=== PATIENT | female | born 1995 | race Caucasian/White ===

== ENCOUNTER 2018-04-09 16:14 | Emergency (ER) | payer OTHER ==
[~2018-04-09] VITALS: Ht 152.4 cm; Wt 44.0 kg
[~2018-04-09 16:14] MED LIST: AMOXICILLIN500 MG ORAL; ZITHROMAX250 MG ORAL
[2018-04-09 16:24] VITALS: BP 118/64
[2018-04-09 17:37] LABS: APPEARANCE,URINE CLEAR; BILIRUBIN, URINE NEGATIVE (NEGATIVE); COLOR,URINE PALE YELLOW; GLUCOSE, URINE (UA) NEGATIVE (NEGATIVE); KETONES,URINE NEGATIVE (NEGATIVE); LEUKOCYTE ESTERASE ,URINE NEGATIVE (NEGATIVE); NITRITE,URINE NEGATIVE (NEGATIVE); PH,URINE 7 (4.5-8.0); PROTEIN,URINE NEGATIVE (NEGATIVE); UROBILINOGEN,URINE NORMAL MG/DL (0.0-1.0)
--- NOTE | 2018-04-09 17:54 | Emergency Room Report ---
History of Present Illness General Chief Complaint: Female Urogenital Problems Source: Patient Present Illness HPI 23-year-old female presents to the emergency department complaining of having GI reaction to 2 antibiotics that she has been given for UTI. Patient states that she initially was taking Macrobid and began to have moderate diarrhea and nausea with vomiting. Her room air care provider then placed her onto Bactrim instead and patient states that she continues to have the same symptoms. Patient denies blood in the vomit or stool. She denies fevers, chills, low back pain, frequency she does report urgency last week. Patient states she has a history of frequent UTIs. Patient denies . She denies abdominal pain or tenderness.Denies CP, Palpitations, LOC, AMS, dizziness, Changes in Vision, Sensation, paresthesias, or a sudden severe headache. Allergies: Coded Allergies: No Known Allergies (Unverified , 04/17/16) Patient History Past Medical History: see triage record Past Surgical History: none Pertinent Family History: none Last Menstrual Period: 03/08/18 Now: No Reviewed Nursing Documentation: PMH: Agreed; PSxH: Agreed Nursing Documentation-PMH Past Medical History: No Stated History Review of Systems All Other Systems: negative except mentioned in HPI Physical Exam Vital Signs Date Time Temp Pulse Resp B/P (MAP) Pulse Ox O2 Delivery O2 Flow Rate FiO2 04/09/18 16:19 98.7 90 20 115/64 100 Room Air 98.8 Sp02 EP Interpretation: reviewed, normal General Appearance: no apparent distress, alert, GCS 15, non-toxic Head: normocephalic, atraumatic ENT: hearing grossly normal, normal voice Neck: full range of motion Respiratory: chest non-tender, lungs clear, normal breath sounds, speaking full sentences Cardiovascular #1: regular rate, rhythm Gastrointestinal: normal bowel sounds, non tender, soft Rectal: deferred Genitourinary: normal inspection, no CVA tenderness Musculoskeletal: back normal, gait/station normal, normal range of motion, non- tender Neurologic: alert, oriented x3, responsive, motor strength/tone normal, sensory intact, speech normal, grossly normal Psychiatric: judgement/insight normal Skin: normal color, no rash, warm/dry, well hydrated Lymphatic: no adenopathy Medical Decision Making PA Attestation Dr. Milner is my supervising Physician whom patient management has been discussed with. Diagnostic Impression: Primary Impression: Adverse drug reaction Qualified Codes: T88.7XXA - Unspecified adverse effect of drug or medicament, initial encounter Additional Impression: Nausea, vomiting, and diarrhea ER Course 23-year-old female presents to the emergency department complaining of having GI reaction to 2 antibiotics that she has been given for UTI. Patient states that she initially was taking Macrobid and began to have moderate diarrhea and nausea with vomiting. Her room air care provider then placed her onto Bactrim instead and patient states that she continues to have the same symptoms. Patient denies blood in the vomit or stool. She denies fevers, chills, low back pain, frequency she does report urgency last week. Patient states she has a history of frequent UTIs. Patient denies . She denies abdominal pain or tenderness.Denies CP, Palpitations, LOC, AMS, dizziness, Changes in Vision, Sensation, paresthesias, or a sudden severe headache. Ddx considered but are not limited to UTi , Pyelo, STI, Stone, Cystitis Review of this patient's culture and sensitivity report was faxed over from doctor's office shows more than 100,000 colony forming units of Escherichia coli Escherichia coli. Sensitive to all antibiotics except for ampicillin, cefazolin and Cipro. Vital signs: are WNL, pt. is afebrile H&PE are most consistent with resolved UTI ORDERS: - UA labs are attached ----No evidence of infection, urine is clear no elevation of inflammatory markers. ED INTERVENTIONS: None required at this time. D/w pt. the results of her urinalysis. d/w pt. that she may d/c previously rx'd abx. I encouraged her to follow up with urology. DISCHARGE: At this time pt. is stable for d/c to home. Will provide printed patient care instructions, and any necessary prescriptions. Care plan and follow up instructions have been discussed with the patient prior to discharge. Labs Test 04/09/18 16:25 Urine Color Pale yellow Urine Appearance Clear Urine pH 7 (4.5-8.0) Urine Specific [employer] [place] 1.005 (1.005-1.035) Urine Protein Negative (NEGATIVE) Urine Glucose (UA) Negative (NEGATIVE) Urine Ketones Negative (NEGATIVE) Urine Occult Blood Negative (NEGATIVE) Urine Nitrite Negative (NEGATIVE) Urine Bilirubin Negative (NEGATIVE) Urine Urobilinogen Normal MG/DL (0.0-1.0) Urine Leukocyte Esterase Negative (NEGATIVE) Urine HCG, Qualitative Negative (NEGATIVE) Last Vital Signs Date Time Temp Pulse Resp B/P (MAP) Pulse Ox O2 Delivery O2 Flow Rate FiO2 04/09/18 16:24 98.8 71 18 118/64 100 Room Air 98.8 Disposition: HOME, SELF-CARE Condition: Stable Referrals: Zackary Maddox M.D. Patient Instructions: Medical Screening Exam Additional Instructions: D/C antibiotics rx'd for UTI, Urine is Normal. Follow up with a Primary Care Provider in 3-5 days, even if your symptoms have resolved. --Please review list of primary care clinics, if you do not already have a primary care provider Return sooner to ED if new symptoms occur, or current symptoms become worse. - Please note that this Emergency Department Report was dictated using [employer] System[employer] farmworker technology software, occasionally this can lead to erroneous entry secondary to interpretation by the dictation equipment. Kerri Prabhakar April 09, 2018 17:54
[2018-04-09 17:56] VITALS: BP 125/69
== END 2018-04-09 18:30 | disposition home or self-care (01) ==
LOC: EMR 16:55
DX: R11.2 Nausea with vomiting, unspecified (principal); T37.0X5A Adverse effect of sulfonamides, initial encounter; Y92.9 Unspecified place or not applicable
CPT/HCPCS: 81003; 81025; 99283

== ENCOUNTER 2018-06-17 14:08 | Emergency (ER) | payer OTHER ==
[~2018-06-17] VITALS: Ht 152.4 cm; Wt 43.1 kg
[2018-06-17 14:28] VITALS: BP 112/78
[2018-06-17 15:08] VITALS: BP 115/82
--- NOTE | 2018-06-17 16:49 | Emergency Room Report ---
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 Patient has been dealing with problems for several years Reports essentially since childhood Reports that initially she had an area on her scalp that was thought to be something else however ended up being radha Denies any vaginal discharge and eyes any abdominal pain or cramping She vomited one time Denies any fevers or chills She reports that she has been taking a cleansing pill for the past several weeks she also started a new diet on Monday Which includes no sugar or starch And soon after she began having the increased stool Denies any recent travel Allergies: Coded Allergies: NITROFURANTOIN (Verified Allergy, Unknown, 06/17/18) n/v/d PHENAZOPYRIDINE (Verified Allergy, Unknown, 06/17/18) n/v/d Patient History Past Medical History: see triage record Pertinent Family History: none Last Menstrual Period: 2 weeks Now: No Reviewed Nursing Documentation: PMH: Agreed; PSxH: Agreed Nursing Documentation-PMH Past Medical History: No Stated History Review of Systems All Other Systems: negative except mentioned in HPI Physical Exam Vital Signs Date Time Temp Pulse Resp B/P (MAP) Pulse Ox O2 Delivery O2 Flow Rate FiO2 06/17/18 14:12 98.7 100 18 110/66 96 Room Air 98.8 Sp02 EP Interpretation: reviewed, normal General Appearance: well appearing, no apparent distress Head: normocephalic, atraumatic Eyes: bilateral eye PERRL, bilateral eye EOMI ENT: hearing grossly normal, normal pharynx, TMs + canals normal, uvula midline Neck: full range of motion, supple, no meningismus, no bony tend Respiratory: lungs clear, normal breath sounds, no rhonchi, no respiratory distress, no retraction, no accessory muscle use Cardiovascular #1: normal peripheral pulses, regular rate, rhythm, no edema, no gallop, no JVD, no murmur Gastrointestinal: normal bowel sounds, non tender, soft, no mass, no organomegaly, non-distended, no guarding, no hernia, no pulsatile mass, no rebound Genitourinary: no CVA tenderness Musculoskeletal: normal inspection Neurologic: oriented x3, responsive, audograph operator III-XII nml as tested, motor strength/ tone normal, sensory intact Psychiatric: mood/affect normal Skin: normal color, no rash, warm/dry, palpation normal Lymphatic: normal inspection, no adenopathy Medical Decision Making Diagnostic Impression: Primary Impression: Gastrointestinal symptom ER Course With the patient's history and examination, multiple differentials considered, including but not limited to , ectopic , ovarian torsion, gastritis, cholecystitis, pancreatitis, appendicitis Patient at this time does not want to obtain any further blood work she did want to send a stool sample The stool sample is reviewed on today's visit and found to be negative Patient was provided with referral to infectious disease specialty and requires close outpatient follow-up C. difficile negative Stool sample culture no acute pathology normal reza Last Vital Signs Date Time Temp Pulse Resp B/P (MAP) Pulse Ox O2 Delivery O2 Flow Rate FiO2 06/17/18 15:08 98.8 80 18 115/82 99 Room Air 98.8 Status: unchanged Disposition: HOME, SELF-CARE Condition: Stable Referrals: [facility],REFERRING (PCP) Lizz Don MD Patient Instructions: Diarrhea, Adult, [id number] Additional Instructions: Patient is provided with the discharge instructions notified to follow up with primary doctor in the next 2-3 days otherwise return to the er with any worsening symptoms. Please note that this report is being documented using [employer] technology. This can lead to erroneous entry secondary to incorrect interpretation by the dictating instrument. Rg Morocho DO Jun 17, 2018 16:49
== END 2018-06-17 15:08 | disposition home or self-care (01) ==
LOC: EMR 14:45
DX: R19.7 Diarrhea, unspecified (principal); Z88.8 Allergy status to other drugs, medicaments and biological substances
CPT/HCPCS: 87045; 87324; 99283

== ENCOUNTER 2018-06-19 11:27 | Emergency (ER) | payer OTHER ==
[~2018-06-19] VITALS: Ht 154.9 cm; Wt 43.1 kg
[2018-06-19] MEDS ORDERED: ZOFRAN4 M3 ORAL (11:36)
[2018-06-19] MEDS ORDERED: CIPRO250 MG ORAL (11:36)
[2018-06-19 11:48] VITALS: BP 145/78
--- NOTE | 2018-06-19 12:33 | Emergency Room Report ---
History of Present Illness General Chief Complaint: General Complaint Source: Patient Present Illness HPI 23-year-old female patient presents ER complaining of nausea and diarrhea past 4 days. Previously seen by the ER [facility] and by her primary care provider yesterday. Reports she has follow-up appointment with an resource director tomorrow. Denies fever, vomiting, diarrhea since initial onset of symptoms. Denies other acute symptoms. Denies dysuria, hematuria, vaginal discharge. Denies vertigo. Denies . Reports able to pass gas. Denies blood in stool. 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 Reports currently take Cipro to cover for possible infection and zofran as prescribed by her PCP. Denies recent travel or abx use prior to onset of symptoms. Reports has not been eating despite hunger due to fear of vomiting. Allergies: Coded Allergies: NITROFURANTOIN (Verified Allergy, Unknown, 06/17/18) n/v/d PHENAZOPYRIDINE (Verified Allergy, Unknown, 06/17/18) n/v/d Patient History Past Medical History: see triage record Last Menstrual Period: 06/02/18 Now: No Reviewed Nursing Documentation: PMH: Agreed; PSxH: Agreed Nursing Documentation-PMH Past Medical History: No Stated History Review of Systems All Other Systems: negative except mentioned in HPI Physical Exam Vital Signs Date Time Temp Pulse Resp B/P (MAP) Pulse Ox O2 Delivery O2 Flow Rate FiO2 06/19/18 11:30 98.9 97 16 145/78 94 99.0 Sp02 EP Interpretation: reviewed, normal General Appearance: well appearing, no apparent distress, alert, GCS 15, non- toxic Head: normocephalic, atraumatic Eyes: bilateral eye normal inspection, bilateral eye PERRL ENT: hearing grossly normal, normal pharynx, no angioedema, normal voice, uvula midline, moist mucus membranes Neck: full range of motion Respiratory: lungs clear, normal breath sounds, no rhonchi, no respiratory distress, no accessory muscle use, no wheezing, speaking full sentences Cardiovascular #1: regular rate, rhythm, no edema Gastrointestinal: non tender, soft, no mass, non-distended, no guarding, no rebound, other - negative Rovsing, negative obturator, negative Villa Genitourinary: no CVA tenderness Musculoskeletal: back normal, digits/nails normal, gait/station normal, normal range of motion, non-tender Neurologic: alert, oriented x3, responsive, senior application software engineer III-XII nml as tested, motor strength/tone normal, sensory intact, cerebellar normal, normal gait, speech normal Psychiatric: mood/affect normal Skin: no rash Medical Decision Making PA Attestation Dr. Holloway is my supervising Physician whom patient management has been discussed with. Diagnostic Impression: Primary Impression: Nausea ER Course Pt. presents to the ED c/o nausea vomiting and diarrhea. Ddx considered but are not limited to viral syndrome, gastritis, enteritis, Vital signs: are WNL, pt. is afebrile at discharge. ORDERS: none required at this time, the diagnosis is clinical ED COURSE: No abdominal TTP, negative Rovsing, negative Villa, cranial nerves intact as tested, no focal neuro deficits, does not require imaging at this time. Provided with Zofran in the ER. Reviewed previous patient chart. Patient informed of possible viral cause of symptoms. No fever, no blood in stool, no recent travel or hospitalizations, does not require abx treatment at this time. No signs of dehydration, moist mucus membranes. Patient reports eating and drinking normally. Offered to check labs and urine while in ER for patient. Patient declined labs or urine test at this time. States that if she "is , it's too early to tell". Instructed patient follow with primary care provider and discuss further treatment and referral at that time.Discuss need for labs at followup. Continue to take medications as perviously instructed. Followup at scheduled appointment with resource director tomorrow. Followup with infectious disease specialist as perviously advised at previous ER visit. Patient stable, states Ok to be discharge home. Patient nontoxic appearing, in no acute distress. DISCHARGE: No rx required at this time. Patient instructed on BRAT diet. Patient instructed to remain hydrated, drink plenty of fluids. Patient questions asked and answered. Patient states understanding and agreement to treatment plan. At this time pt. is stable for d/c to home. Patient is resting comfortably, laughing, in no acute distress, nontoxic appearing. Will provide printed patient care instructions, and any necessary prescriptions. Care plan and follow up instructions have been discussed with the patient prior to discharge. Patient instructed to followup with PCP in 3-5 days. Patient reports understanding and agreement to treatment plan. Patient questions asked and answered. ER precautions given; patient instructed to return to ER for new or worsening of symptoms including but not limited to fever, intractable vomiting, severe abdominal pain, blood in stool. - Please note that this Emergency Department Report was dictated using [employer] officer technology software, occasionally this can lead to erroneous entry secondary to interpretation by the dictation equipment. Last Vital Signs Date Time Temp Pulse Resp B/P (MAP) Pulse Ox O2 Delivery O2 Flow Rate FiO2 06/19/18 11:48 99.0 87 16 145/78 94 99.0 Disposition: HOME, SELF-CARE Condition: Stable Referrals: [facility],REFERRING (PCP) Patient Instructions: Diarrhea, Adult, [id number], Nausea and Vomiting, Adult , [id number] Additional Instructions: Followup with primary care provider in 3 -5 days. Avoid spicy foods, avoid dairy foods. BRAT diet: bananas, rice, apple sauce, toast. Take medications as directed. Take Tylenol for pain symptoms. Patient questions asked and answered. ER precautions given, patient instructed to return to ER immediately for any new or worsening of symptoms. Fam Godoy Jun 19, 2018 12:33
[2018-06-19 12:54] VITALS: BP 132/82
== END 2018-06-19 12:55 | disposition home or self-care (01) ==
LOC: EMR 12:15
DX: R11.0 Nausea (principal); R19.7 Diarrhea, unspecified; Z88.8 Allergy status to other drugs, medicaments and biological substances
CPT/HCPCS: 99282